=== PATIENT | male | born 1955 | race African-American/Black ===

== ENCOUNTER → 2021-03-24 | Outpatient (CLI) | payer SELFPAY ==
[~2021-03-24] MED LIST: ASPI325T57 PO; FLOM0.4C39 PO; LISI30TA4 PO; METO1TAB32 PO; OMEP20TA17 PO; PRAZ1CAP PO; SILD100T PO; SIMV40TA20 PO; TRAM50TA2 PO; TRAZ-252 PO; ZOLO100T PO
== END ==
LOC: M LABSMTC 11:57
PROVIDERS: ATTEND Anesthesiology
DX: Z01.812 Encounter for preprocedural laboratory examination (principal); Z20.822 Contact with and (suspected) exposure to COVID-19

== ENCOUNTER 2021-03-29 10:19 | Day surgery (SDC) | payer OTHER ==
[~2021-03-29] VITALS: Ht 185.4 cm; Wt 61.2 kg
[~2021-03-29 10:19] MED LIST changes: +NS 1,000 ML IV SCH
[2021-03-29] MEDS ORDERED: METOPROLOL SUCC *XL* 25MG TAB (TopROL *XL*) PO ONE (12:00)
[2021-03-29] MEDS ORDERED: propofoL 200 MG/20 ML VIAL As Ordered ONE (12:29)
[2021-03-29 13:07] VITALS: BP 125/82
== END 2021-03-29 13:09 | disposition home or self-care (01) ==
LOC: M OPP 10:19
PROVIDERS: ATTEND Surgery
DX: Z12.11 Encounter for screening for malignant neoplasm of colon (principal); Z86.010 Personal history of colon polyps; Z79.82 Long term (current) use of aspirin; Z79.899 Other long term (current) drug therapy; Z87.891 Personal history of nicotine dependence

== ENCOUNTER → 2021-05-19 | Outpatient (CLI) | payer OTHER ==
[~2021-05-19] MED LIST changes: -NS 1,000 ML IV SCH
== END ==
LOC: M LABSMTC 11:31
PROVIDERS: ATTEND Anesthesiology
DX: Z01.818 Encounter for other preprocedural examination (principal); Z11.52 Encounter for screening for COVID-19

== ENCOUNTER 2021-05-24 07:20 | Day surgery (SDC) | payer OTHER ==
[~2021-05-24] VITALS: Ht 185.4 cm; Wt 63.5 kg
[~2021-05-24 07:20] MED LIST changes: +NS 1,000 ML IV ONE
[2021-05-24] MEDS ORDERED: propofoL 500 MG/50 ML VIAL As Ordered ONE (08:46)
[2021-05-24] MEDS ORDERED: LIDOCAINE 2% 100MG/5ML SDV (FOR ANES.) As Ordered ONE (08:46)
--- NOTE | 2021-05-24 09:12 | ROOR ---
Patient Name: Enrike Frias Procedure Date: 05/24/2021 8:40 AM Date of : 1955 Age: 66 Room: [facility] Gender: Male Note Status: Finalized Procedure: Colonoscopy Indications: High risk colon cancer surveillance: Personal history of colonic polyps Providers: DO Lalo Castano MD: Jonathan Tripathi Requesting Provider: Medicines: Propofol per Anesthesia Complications: No immediate complications. Procedure: Pre-Anesthesia Assessment: - Prior to the procedure, a History and Physical was performed, and patient medications and allergies were reviewed. The patient is competent. The risks and benefits of the procedure and the sedation options and risks were discussed with the patient. All questions were answered and informed consent was obtained. Patient identification and proposed procedure were verified by the physician, the nurse, the anesthesiologist and the obstetrics technician in the endoscopy suite. Mental Status Examination: alert and oriented. Airway Examination: normal oropharyngeal airway and neck mobility. Respiratory Examination: clear to auscultation. CV Examination: normal. Prophylactic Antibiotics: The patient does not require prophylactic antibiotics. Prior Anticoagulants: The patient has taken no previous anticoagulant or antiplatelet agents. ASA Grade Assessment: II - A patient with mild systemic disease. After reviewing the risks and benefits, the patient was deemed in satisfactory condition to undergo the procedure. The anesthesia plan was to use monitored anesthesia care (MAC). Immediately prior to administration of medications, the patient was re-assessed for adequacy to receive sedatives. The heart rate, respiratory rate, oxygen saturations, blood pressure, adequacy of pulmonary ventilation, and response to care were monitored throughout the procedure. The physical status of the patient was re-assessed after the procedure. The Colonoscope was introduced through the anus and advanced to the cecum, identified by appendiceal orifice and ileocecal valve. The colonoscopy was performed without difficulty. The patient tolerated the procedure well. Findings: Non-bleeding internal hemorrhoids were found during retroflexion. The hemorrhoids were small and Grade I (internal hemorrhoids that do not prolapse). A single small-mouthed diverticulum was found in the sigmoid colon. A less than 5 mm polyp was found in the ascending colon. The polyp was hyperplastic. The polyp was removed with a hot snare. Resection and retrieval were complete. Estimated blood loss was minimal. Impression: - Non-bleeding internal hemorrhoids. - Diverticulosis in the sigmoid colon. - One less than 5 mm polyp in the ascending colon, removed with a hot snare. Resected and retrieved. Recommendation: - Patient has a contact number available for emergencies. The signs and symptoms of potential delayed complications were discussed with the patient. Return to normal activities tomorrow. Written discharge instructions were provided to the patient. - Await pathology results. - Repeat colonoscopy in 3 - 5 years for surveillance based on pathology results. - Return to physician animal assistant at appointment to be scheduled. Procedure Code(s): --- Professional --- 94175, Colonoscopy, flexible; with removal of tumor(s), polyp(s), or other lesion(s) by snare technique Diagnosis Code(s): --- Professional --- Z86.010, Personal history of colonic polyps K64.0, First degree hemorrhoids K63.5, Polyp of colon K57.30, Diverticulosis of large intestine without perforation or abscess without bleeding CPT copyright 2019 [employer]. All rights reserved. The codes documented in this report are preliminary and upon chemical lab technician review may be revised to meet current compliance requirements. Garrick Gardner DO 05/24/2021 9:12:29 AM Electronically signed by Garrick Gardner DO Number of Addenda: 0 Note Initiated On: 05/24/2021 8:40 AM Estimated Blood Loss: Estimated blood loss was minimal.
[2021-05-24 09:40] VITALS: BP 122/69
== END 2021-05-24 09:48 | disposition home or self-care (01) ==
LOC: M OPP 07:20
PROVIDERS: ATTEND Surgery
DX: D12.6 Benign neoplasm of colon, unspecified (principal); K64.0 First degree hemorrhoids; K57.30 Diverticulosis of large intestine without perforation or abscess without bleeding; Z86.010 Personal history of colon polyps; I10 Essential (primary) hypertension; E78.00 Pure hypercholesterolemia, unspecified; K74.60 Unspecified cirrhosis of liver; F41.9 Anxiety disorder, unspecified; F32.A Depression, unspecified; Z79.899 Other long term (current) drug therapy

== ENCOUNTER 2022-01-18 12:49 | Emergency (ER) | payer OTHER ==
[~2022-01-18] VITALS: Ht 180.3 cm; Wt 59.7 kg
[~2022-01-18 12:49] MED LIST changes: -NS 1,000 ML IV ONE
[2022-01-18] MEDS ORDERED: traZODone 50 MG TAB PO ONE (13:20)
[2022-01-18 14:42] LABS: HEMOGLOBIN 13.6 g/dl (13.5-17.5); MEAN CORPUSCULAR HEMOGLOBIN 26.1 pg (27.0-33.0); MEAN CORPUSCULAR VOLUME 76.8 fl (80.0-96.0); PLATELET COUNT, AUTOMATED 264 10^3/uL (150-450); RED BLOOD COUNT 5.21 10^6/uL (4.30-6.10); WHITE BLOOD COUNT 8.3 10^3/uL (4.0-10.0)
[2022-01-18 15:10] LABS: RSV AMPLIFICATION NEGATIVE (NEGATIVE)
[2022-01-18 15:15] LABS: ACETAMINOPHEN LEVEL < 2.0 UG/ML (10.0-30.0); ALBUMIN 3.7 GM/DL (3.2-5.2); ALT/SGPT 58 U/L (12-78); BILIRUBIN,DIRECT 0.2 MG/DL (0.0-0.2); BILIRUBIN,TOTAL 0.6 MG/DL (0.2-1.0); BLOOD UREA NITROGEN 11 MG/DL (7-18); CALCIUM LEVEL 9.2 MG/DL (8.8-10.2); CARBON DIOXIDE LEVEL 24 MEQ/L (21-32); CHLORIDE LEVEL 98 MEQ/L (98-107); CREATININE FOR GFR 0.86 MG/DL (0.70-1.30); ETHYL ALCOHOL (ETHANOL) 0.006 % (0.000-0.010); GLOMERULAR FILTRATION RATE > 60.0 (>49); GLUCOSE, FASTING 105 MG/DL (70-100); POTASSIUM SERUM 3.7 MEQ/L (3.5-5.1); SALICYLATE LEVEL 3.5 MG/DL (5.0-30.0); SODIUM LEVEL 130 MEQ/L (136-145); THYROID STIMULATING HORMONE 0.847 uIU/ML (0.358-3.740); TOTAL PROTEIN 7.9 GM/DL (6.4-8.2)
[2022-01-18 15:19] LABS: AMPHETAMINES LEVEL URINE NEGATIVE (NEGATIVE); BARBITURATES URINE NEGATIVE (NEGATIVE); BENZODIAZEPINES URINE NEGATIVE (NEGATIVE); CANNABINOIDS URINE POSITIVE (NEGATIVE); COCAINE METABOLITE URINE NEGATIVE (NEGATIVE); METHADONE URINE NEGATIVE (NEGATIVE); OPIATES URINE NEGATIVE (NEGATIVE); PHENCYCLIDINE URINE NEGATIVE (NEGATIVE)
[2022-01-18] MEDS ORDERED: TRAZ-252 PO (16:37)
[2022-01-18 16:45] VITALS: BP 168/92
== END 2022-01-18 16:57 | disposition home or self-care (01) ==
LOC: M ED 12:49
DX: F19.230 Other psychoactive substance dependence with withdrawal, uncomplicated (principal); I10 Essential (primary) hypertension; E78.5 Hyperlipidemia, unspecified; G89.29 Other chronic pain; F10.11 Alcohol abuse, in remission; Z86.73 Personal history of transient ischemic attack (TIA), and cerebral infarction without residual deficits; Z79.899 Other long term (current) drug therapy; Z79.82 Long term (current) use of aspirin; F17.200 Nicotine dependence, unspecified, uncomplicated

== ENCOUNTER 2022-04-04 10:54 | Emergency (ER) | payer OTHER ==
[~2022-04-04] VITALS: Ht 185.4 cm; Wt 65.4 kg
[2022-04-04] MEDS ORDERED: AMPICILLIN SOD/SULBACTAM SOD 3 GM in D5W MINI-BAG PLUS 100 ML IV ONE (13:20)
[2022-04-04 13:43] LABS: BASO % 0.4 % (0.0-1.0); EOS # 0.1 10^3/uL (0.0-0.5); HEMATOCRIT 43.6 % (42.0-52.0); HEMOGLOBIN 13.8 g/dl (13.5-17.5); LYMPH # 1.7 10^3/uL (1.5-5.0); LYMPH % 24.9 % (24.0-44.0); MEAN CORPUSCULAR HEMOGLOBIN 26.1 pg (27.0-33.0); MEAN CORPUSCULAR HGB CONC 31.7 g/dl (32.0-36.5); MEAN CORPUSCULAR VOLUME 82.6 fl (80.0-96.0); MONO % 13.9 % (2.0-8.0); NEUTROPHILS % 58.5 % (36.0-66.0); PLATELET COUNT, AUTOMATED 199 10^3/uL (150-450); RED BLOOD COUNT 5.28 10^6/uL (4.30-6.10); WHITE BLOOD COUNT 6.8 10^3/uL (4.0-10.0)
[2022-04-04 14:04] LABS: ERYTHROCYTE SEDIMENTATION RATE 18 mm/hr (0-20)
[2022-04-04] MEDS ORDERED: KETOROLAC 30 MG/ML 1ML VIAL IV ONE (14:35)
[2022-04-04] MEDS ORDERED: AMOX875T2 PO (15:33)
[2022-04-04 15:41] VITALS: BP 136/82
== END 2022-04-04 15:42 | disposition home or self-care (01) ==
LOC: M ED 10:54
DX: L03.211 Cellulitis of face (principal); K03.81 Cracked tooth; Z86.73 Personal history of transient ischemic attack (TIA), and cerebral infarction without residual deficits; I10 Essential (primary) hypertension; F41.9 Anxiety disorder, unspecified; F32.A Depression, unspecified; Z79.82 Long term (current) use of aspirin; Z79.899 Other long term (current) drug therapy
CPT/HCPCS: 70486; 80047; 85025; 85652; 86140; 96365; 96375; 99283; J0295; J1885

== ENCOUNTER 2024-08-31 06:41 | Day surgery (SDC) | payer OTHER ==
[~2024-08-31] VITALS: Ht 177.8 cm; Wt 63.7 kg
[~2024-08-31 06:41] MED LIST changes: +AMOX875T2 PO; +VENTAER INH
[2024-08-31] MEDS ORDERED: LR 1,000 ML IV SCH (07:00)
[2024-08-31] MEDS: FLURBIPROFEN 0.03% OPHTH SOLN 2.5 ML OD SCH (07:41)
[2024-08-31] MEDS: CYCLOPENTOLATE 1% OPHTH SOLN 2ML BTL OD SCH (07:41)
[2024-08-31] MEDS: TETRACAINE 0.5% OPHTH SOLN 4ML OD SCH (07:41)
[2024-08-31] MEDS: PHENYLEPHRINE 2.5% OPHTH SOL 2ML OD SCH (07:41)
[2024-08-31] MEDS: LIDOCAINE 1% SDV 5ML VIAL As Ordered ONE (08:41)
[2024-08-31] MEDS: CEFUROXIME 1MG/0.1ML INTRACAMERAL INJ As Ordered ONE (08:41)
[2024-08-31 09:01] VITALS: BP 121/82; TEMP 97.5; O2SAT 99
== END 2024-08-31 09:28 | disposition home or self-care (01) ==
LOC: M SDC 06:41
PROVIDERS: ATTEND Ophthalmology
DX: H25.9 Unspecified age-related cataract (principal); Z86.73 Personal history of transient ischemic attack (TIA), and cerebral infarction without residual deficits; Z79.899 Other long term (current) drug therapy
CPT/HCPCS: 66984; J0697; V2632

== ENCOUNTER 2024-11-01 07:31 | Observation (INO) | payer OTHER ==
[~2024-11-01] VITALS: Ht 185.4 cm; Wt 59.9 kg
[~2024-11-01 07:31] MED LIST changes: +PRESCAP PO
[2024-11-01 08:52] LABS: BASO % 0.4 % (0.0-1.0); EOS # 0.1 10^3/uL (0.0-0.5); EOS % 1.3 % (0.0-3.0); HEMATOCRIT 41.6 % (42.0-52.0); HEMOGLOBIN 13.8 g/dl (13.5-17.5); LYMPH # 1.4 10^3/uL (1.5-5.0); LYMPH % 25.5 % (24.0-44.0); MEAN CORPUSCULAR HEMOGLOBIN 27.5 pg (27.0-33.0); MEAN CORPUSCULAR HGB CONC 33.2 g/dl (32.0-36.5); MEAN CORPUSCULAR VOLUME 82.9 fl (80.0-96.0); MONO # 0.6 10^3/uL (0.0-0.8); MONO % 11.9 % (2.0-8.0); NEUTROPHILS # 3.3 10^3/uL (1.5-8.5); NEUTROPHILS % 60.7 % (36.0-66.0); PLATELET COUNT, AUTOMATED 196 10^3/uL (150-450); RED BLOOD COUNT 5.02 10^6/uL (4.30-6.10); WHITE BLOOD COUNT 5.4 10^3/uL (4.0-10.0)
[2024-11-01] MEDS ORDERED: ISOVUE-370 76% 100ML VIAL As Ordered ONE (09:12)
[2024-11-01 09:15] LABS: CK-MB VALUE MASS 1.5 NG/ML (<3.6)
[2024-11-01 09:17] LABS: MB/CK RELATIVE INDEX 0.39 (< OR =4)
[2024-11-01 09:18] LABS: CALCIUM LEVEL 9.4 MG/DL (8.3-10.6); CREATININE FOR GFR 0.99 MG/DL (0.70-1.30); GLOMERULAR FILTRATION RATE 82.5 (>49); POTASSIUM SERUM 4.2 MMOL/L (3.5-5.1)
[2024-11-01 09:22] LABS: INR 1.26; PARTIAL THROMBOPLASTIN TIME 27.7 SECONDS (24.8-34.2)
[2024-11-01] MEDS: NS 500 ML IV ONE (09:37)
[2024-11-01] MEDS: MECLIZINE 25 MG TABLET PO ONE (11:56)
[2024-11-01] MEDS ORDERED: ACETAMINOPHEN 325 MG TAB PO PRN (17:25)
[2024-11-01] MEDS ORDERED: MECLIZINE 25 MG TABLET PO PRN (17:30)
[2024-11-01 17:53] LABS: ALBUMIN 3.6 G/DL (3.2-5.2); BILIRUBIN,DIRECT 0.1 MG/DL (<0.4); BILIRUBIN,TOTAL 0.4 MG/DL (0.3-1.2); CHOLESTEROL RISK RATIO 2.4 (<5); HDL CHOLESTEROL 57.5 MG/DL (>40); LDL CHOLESTEROL 68.3 MG/DL (<100); NON-HDL-C 80.5 MG/DL; TOTAL PROTEIN 7.9 G/DL (5.7-8.2)
[2024-11-01] MEDS ORDERED: GABA-1172 PO (18:01)
[2024-11-01] MEDS ORDERED: THERTAB52 PO (18:01)
[2024-11-01] MEDS ORDERED: TRAZ-252 PO (18:01)
[2024-11-01] MEDS ORDERED: HOME MED LIST COMPLETE! XX SCH (18:05)
[2024-11-01 18:17] LABS: HEMOGLOBIN A1c 5.2 % (4.0-6.0)
[2024-11-01] MEDS: SIMVASTATIN 40 MG TAB PO SCH (21:06)
[2024-11-01] MEDS: CLOPIDOGREL 75 MG TAB PO SCH (21:06)
[2024-11-01 21:31] VITALS: BP 114/68; TEMP 97.2; O2SAT 100
[2024-11-01] MEDS: traZODone 50 MG TAB PO ONE (23:12)
[2024-11-02 05:43] LABS: HEMOGLOBIN 13.5 g/dl (13.5-17.5); MEAN CORPUSCULAR HEMOGLOBIN 26.9 pg (27.0-33.0); MEAN CORPUSCULAR HGB CONC 32.9 g/dl (32.0-36.5); MEAN CORPUSCULAR VOLUME 81.7 fl (80.0-96.0); PLATELET COUNT, AUTOMATED 191 10^3/uL (150-450); RED BLOOD COUNT 5.02 10^6/uL (4.30-6.10); WHITE BLOOD COUNT 5.7 10^3/uL (4.0-10.0)
[2024-11-02 06:12] LABS: ALBUMIN 3.3 G/DL (3.2-5.2); BILIRUBIN,TOTAL 0.5 MG/DL (0.3-1.2); CALCIUM LEVEL 8.7 MG/DL (8.3-10.6); CREATININE FOR GFR 0.93 MG/DL (0.70-1.30); GLOMERULAR FILTRATION RATE 88.9 (>49); POTASSIUM SERUM 4.3 MMOL/L (3.5-5.1); TOTAL PROTEIN 7.3 G/DL (5.7-8.2)
[2024-11-02 07:45] VITALS: BP_SYST 109; BP_SYST 130; BP_SYST 133; BP_DIAS 72; BP_DIAS 75; BP_DIAS 85
[2024-11-02] MEDS: ENOXAPARIN 40MG/0.4ML SYRINGE (J1650 PER 10MG) SC SCH (08:35)
[2024-11-02] MEDS: ASPIRIN 81MG ENTERIC TABLET PO SCH (08:35)
[2024-11-02 12:00] VITALS: BP 116/79; TEMP 97.3; O2SAT 100
[2024-11-02] MEDS ORDERED: MECL-86 PO (12:30)
[2024-11-02] MEDS ORDERED: SIMV80TA13 PO (12:30)
[2024-11-02] MEDS ORDERED: CLOP75TA2 PO (12:30)
[2024-11-02] MEDS ORDERED: ASPI81TAEC PO (12:30)
== END 2024-11-02 13:19 | disposition home or self-care (01) ==
LOC: M ED 07:31 → M ED INP 07:32 → M MSPAV 21:32
PROVIDERS: ADMIT Internal Medicine; ATTEND Internal Medicine
DX: R42 Dizziness and giddiness (principal); H53.9 Unspecified visual disturbance; I65.21 Occlusion and stenosis of right carotid artery; I10 Essential (primary) hypertension; E78.5 Hyperlipidemia, unspecified; R26.81 Unsteadiness on feet; R74.8 Abnormal levels of other serum enzymes; R11.0 Nausea; H55.09 Other forms of nystagmus; R06.02 Shortness of breath; R73.03 Prediabetes; G89.4 Chronic pain syndrome; Z87.828 Personal history of other (healed) physical injury and trauma; I69.334 Monoplegia of upper limb following cerebral infarction affecting left non-dominant side; F10.11 Alcohol abuse, in remission; Z87.19 Personal history of other diseases of the digestive system; Z86.79 Personal history of other diseases of the circulatory system; G47.00 Insomnia, unspecified; N52.9 Male erectile dysfunction, unspecified; H25.9 Unspecified age-related cataract; Z98.890 Other specified postprocedural states; Z83.3 Family history of diabetes mellitus; Z82.49 Family history of ischemic heart disease and other diseases of the circulatory system; Z87.891 Personal history of nicotine dependence; Z79.899 Other long term (current) drug therapy; Z79.82 Long term (current) use of aspirin
CPT/HCPCS: 36415; 70450; 70496; 70498; 70551; 71045; 80047; 80048; 80053; 80061; 80076; 82550; 82553; 83036; 84484; 85025; 85027; 85610; 85730; 93005; 93041; 94760; 96360; 96361; 96372; 97161; 97165; 99285; G0378; J1650; Q9967

== ENCOUNTER 2025-02-08 08:52 | Day surgery (SDC) | payer OTHER ==
[~2025-02-08] VITALS: Ht 180.3 cm; Wt 60.8 kg
[~2025-02-08 08:52] MED LIST changes: +ASPI-531 PO; +ASPI81TAEC PO; +CLOP75TA2 PO; +CYCLOPENTOLATE 1% OPHTH SOLN 2 ML BTL OS SCH; -FLOM0.4C39 PO; +FLURBIPROFEN 0.03% OPHTH SOLN 2.5 ML OS SCH; +GABA-1172 PO; +LR 1,000 ML IV SCH; +MECL-86 PO; +PHENYLEPHRINE 2.5% OPHTH SOL 2ML OS SCH; +SIMV80TA13 PO; +TAMS-18 PO; +TETRACAINE 0.5% OPHTH SOLN 4ML OS SCH; +THERTAB52 PO
[2025-02-08] MEDS ORDERED: MIDAZOLAM INJ 2 MG/2 ML VIAL As Ordered ONE (11:23)
[2025-02-08] MEDS: LIDOCAINE 1% SDV 5 ML VIAL As Ordered ONE (12:06)
[2025-02-08] MEDS: CEFUROXIME 1 MG/0.1 ML INTRACAMERAL INJ As Ordered ONE (12:10)
[2025-02-08 12:28] VITALS: BP 153/88; TEMP 97.7; O2SAT 97
== END 2025-02-08 12:50 | disposition home or self-care (01) ==
LOC: M SDC 08:52
PROVIDERS: ATTEND Ophthalmology
DX: H25.12 Age-related nuclear cataract, left eye (principal); I10 Essential (primary) hypertension; J44.9 Chronic obstructive pulmonary disease, unspecified; E78.00 Pure hypercholesterolemia, unspecified; K74.60 Unspecified cirrhosis of liver; N40.0 Benign prostatic hyperplasia without lower urinary tract symptoms; K21.9 Gastro-esophageal reflux disease without esophagitis; Z79.02 Long term (current) use of antithrombotics/antiplatelets; Z79.899 Other long term (current) drug therapy; Z79.82 Long term (current) use of aspirin; Z86.73 Personal history of transient ischemic attack (TIA), and cerebral infarction without residual deficits; Z98.41 Cataract extraction status, right eye
CPT/HCPCS: 66984; J0697; J2250; J3010; V2632

== ENCOUNTER 2025-04-04 18:21 | Day surgery (SDC) | payer MEDICARE, OTHER ==
[~2025-04-04] VITALS: Ht 185.4 cm; Wt 66.2 kg
[~2025-04-04 18:21] MED LIST changes: -CYCLOPENTOLATE 1% OPHTH SOLN 2 ML BTL OS SCH; -FLURBIPROFEN 0.03% OPHTH SOLN 2.5 ML OS SCH; -LR 1,000 ML IV SCH; -PHENYLEPHRINE 2.5% OPHTH SOL 2ML OS SCH; -TETRACAINE 0.5% OPHTH SOLN 4ML OS SCH
[2025-04-04 22:30] LABS: BASO # 0.0 10^3/uL (0.0-0.2); BASO % 0.5 % (0.0-1.0); EOS # 0.3 10^3/uL (0.0-0.5); EOS % 4.1 % (0.0-3.0); LYMPH # 2.8 10^3/uL (1.5-5.0); LYMPH % 34.6 % (24.0-44.0); MONO # 1.1 10^3/uL (0.0-0.8); MONO % 13.4 % (2.0-8.0); NEUTROPHILS # 3.8 10^3/uL (1.5-8.5); NEUTROPHILS % 47.3 % (36.0-66.0); PLATELET COUNT, AUTOMATED 230 10^3/uL (150-450)
[2025-04-04] MEDS ORDERED: ALBUTEROL 6.7 GM INHALER **FOR ANES. CART/OMNICELL ONLY As Ordered ONE (22:49)
[2025-04-04 23:02] LABS: CALCIUM LEVEL 9.0 MG/DL (8.3-10.6); CARBON DIOXIDE LEVEL 30.0 MMOL/L (20-31); CHLORIDE LEVEL 106.0 MMOL/L (98-107); CREATININE FOR GFR 0.95 MG/DL (0.70-1.30); GLOMERULAR FILTRATION RATE 86.1 (>42); MAGNESIUM LEVEL 1.8 MG/DL (1.8-2.4); POTASSIUM SERUM 4.3 MMOL/L (3.5-5.1); SODIUM LEVEL 141.0 MMOL/L (136-145)
[2025-04-04 23:45] VITALS: BP 134/75; TEMP 97.2; O2SAT 98
[2025-04-05 04:00] VITALS: BP 123/66; TEMP 98.7; O2SAT 97
== END 2025-04-05 08:30 | disposition home or self-care (01) ==
LOC: M ED 18:21 → M SDC 22:15 → M MS4PR 23:45 → EDBEDREQ 23:53 → EDBEDREQTM 23:53 → M SDC 04-05 08:30
PROVIDERS: ATTEND Surgery
DX: T18.198A Other foreign object in esophagus causing other injury, initial encounter (principal); Y92.9 Unspecified place or not applicable; I10 Essential (primary) hypertension; J44.9 Chronic obstructive pulmonary disease, unspecified; Z86.73 Personal history of transient ischemic attack (TIA), and cerebral infarction without residual deficits; F17.200 Nicotine dependence, unspecified, uncomplicated; K21.9 Gastro-esophageal reflux disease without esophagitis; E78.5 Hyperlipidemia, unspecified; N40.0 Benign prostatic hyperplasia without lower urinary tract symptoms; D57.3 Sickle-cell trait; Z79.899 Other long term (current) drug therapy; Z79.82 Long term (current) use of aspirin; Z79.02 Long term (current) use of antithrombotics/antiplatelets

== ENCOUNTER 2025-04-22 09:40 | Emergency (ER) | payer OTHER ==
[~2025-04-22] VITALS: Ht 180.3 cm; Wt 68.2 kg
[2025-04-22 10:16] LABS: PLATELET COUNT, AUTOMATED 221 10^3/uL (150-450)
[2025-04-22 10:43] LABS: CALCIUM LEVEL 8.7 MG/DL (8.3-10.6); CARBON DIOXIDE LEVEL 26.0 MMOL/L (20-31); CHLORIDE LEVEL 108.0 MMOL/L (98-107); CREATININE FOR GFR 0.95 MG/DL (0.70-1.30); GLOMERULAR FILTRATION RATE 86.1 (>42); POTASSIUM SERUM 4.5 MMOL/L (3.5-5.1); SODIUM LEVEL 142.0 MMOL/L (136-145)
[2025-04-22 11:40] VITALS: BP 149/90; TEMP 97.1; O2SAT 100
== END 2025-04-22 11:50 | disposition home or self-care (01) ==
LOC: M ED 09:40 → EDBD 09:40 → M ED 11:50
DX: G40.89 Other seizures (principal); S40.012A Contusion of left shoulder, initial encounter; Y92.9 Unspecified place or not applicable; Y93.9 Activity, unspecified; Y99.9 Unspecified external cause status; V47.5XXA Car driver injured in collision with fixed or stationary object in traffic accident, initial encounter; I10 Essential (primary) hypertension; E78.5 Hyperlipidemia, unspecified; J44.9 Chronic obstructive pulmonary disease, unspecified; F10.10 Alcohol abuse, uncomplicated; Z87.891 Personal history of nicotine dependence; Z79.1 Long term (current) use of non-steroidal anti-inflammatories (NSAID); Z79.51 Long term (current) use of inhaled steroids; Z79.899 Other long term (current) drug therapy